=== PATIENT | male | born 1960 | race Caucasian/White ===

== ENCOUNTER 2017-06-20 22:44 | Emergency (ER) | payer MEDICAID ==
[~2017-06-20] VITALS: Ht 182.9 cm; Wt 113.0 kg
[2017-06-21] MEDS ORDERED: IBUPROFEN 600MG TABLET PO ONE (01:15)
[2017-06-21 06:41] VITALS: BP 132/77
== END 2017-06-21 07:06 | disposition home or self-care (01) ==
LOC: ER 23:17
DX: S13.4XXA Sprain of ligaments of cervical spine, initial encounter (principal); S33.5XXA Sprain of ligaments of lumbar spine, initial encounter; I50.9 Heart failure, unspecified; I11.0 Hypertensive heart disease with heart failure; E11.9 Type 2 diabetes mellitus without complications; V89.2XXA Person injured in unspecified motor-vehicle accident, traffic, initial encounter; Y93.89 Activity, other specified; Y92.89 Other specified places as the place of occurrence of the external cause; Y99.8 Other external cause status
CPT/HCPCS: 72100; 72125; 72131; 99284